=== PATIENT | female | born 1985 | race Caucasian/White ===

== ENCOUNTER → 2019-10-19 14:29 | Outpatient (CLI) | payer OTHER, SELFPAY ==
--- NOTE | 2019-10-19 14:40 | CT_ITS ---
PROCEDURE: CT BONY PELVIS CLINICAL INDICATION: FX OF SACRUM Injury with pain, possible fracture COMPARISON: ABDPELW CT ABD PELVIS W/ CONTRAST from 01/30/2017 XR COCCYX 2V from 10/05/2019 TECHNIQUE: Axial images obtained with sagittal and coronal reformats. All CT scans at the facility use one or more dose reduction, viz: automated exposure control, ma/kV adjustment per patient size (including targeted exams where dose is matched to indication, i.e. head), or iterative reconstruction technique. FINDINGS: There is a mildly displaced fracture involving the sacrococcygeal junction. The distal fracture fragment is displaced anteriorly by 8 mm with over riding of the bony fragments by approximately 10 mm. There is a small umbilical hernia containing fat and a knuckle of small bowel. No bowel obstruction. There is a small amount of fluid in the pelvis. IMPRESSION: Mildly displaced sacrococcygeal fracture Dictated by: Azam Mike MD 10/19/2019 21:00 Electronically signed by Azam Mike MD in [place] 10/19/2019 21:00
== END ==
PROVIDERS: PCP Internal Medicine Adolescent Medicine; Visit Provider Nurse Practitioner Family
DX: S32.10XA Unspecified fracture of sacrum, initial encounter for closed fracture (principal)
CPT/HCPCS: 72192

== ENCOUNTER → 2020-07-02 16:44 | Outpatient (CLI) | payer OTHER, SELFPAY | PROVIDERS: PCP Internal Medicine Adolescent Medicine; Visit Provider Nurse Practitioner Family | DX: Z03.818 Encounter for observation for suspected exposure to other biological agents ruled out (principal) | CPT/HCPCS: U0003 ==

== ENCOUNTER → 2020-07-04 12:53 | Outpatient (POV) | payer OTHER, SELFPAY | PROVIDERS: Visit Provider Dermatology | DX: Z00.00 Encounter for general adult medical examination without abnormal findings (principal) ==

== ENCOUNTER → 2022-11-11 12:56 | Outpatient (CLI) | payer OTHER, SELFPAY ==
[2022-11-11 13:18] LABS: Basophils # 0.1 K/mm3 (0-0.2); Eosinophils # 0.1 K/mm3 (0.0-0.4); Eosinophils % 0.8 % (0.1-12.0); Hematocrit 39.8 % (37.0-47.0); Hemoglobin 13.3 g/dL (12.2-16.2); Lymphocytes # 2.7 K/mm3 (0.7-4.5); Lymphocytes % 38.4 % (10-50); Mean Corpuscular HGB Conc 33.5 g/dL (31.8-35.4); Mean Corpuscular Hemoglobin 29.6 pg (27.0-31.2); Mean Corpuscular Volume 88.4 fl (81-99); Mean Platelet Volume 7.8 fl (7.4-10.4); Monocytes # 0.6 K/mm3 (0.1-1.0); Monocytes % 7.9 % (1.7-9.3); Neutrophils # 3.7 K/mm3 (1.8-7.8); Neutrophils % 51.8 % (37.0-80.0); Platelet Count 332 K/mm3 (142-424); Red Cell Distribution Width 12.8 % (11.5-17.5); White Blood Count 7.1 K/mm3 (4.8-10.8)
[2022-11-11 16:12] LABS: Alanine Aminotransferase 15 U/L (12-78); Albumin Level 4.4 g/dl (3.5-5.0); Albumin/Globulin Ratio 1.3 (1.1-1.8); Alkaline Phosphatase 83 U/L (38-126); Anion Gap 13.1 mEq/L (5-15); Aspartate Amino Transferase 23 U/L (14-36); Bilirubin,Total 0.4 mg/dl (0.2-1.3); Blood Urea Nitrogen 10 mg/dl (7-17); Calcium 9.8 mg/dl (8.4-10.2); Carbon Dioxide 23 mmol/L (22.0-30.0); Chloride 105 mmol/L (98-107); Chol/HDL Ratio 5.2 (1-3.5); Cholesterol 251 mg/dl (140-200); Estimated Glomerular Filt Rate 94 ml/min (>60); GFR (African American) 113 ML/MIN (>60); Globulin 3.5 g/dL (1.3-3.2); Glucose 87 mg/dl (74-100); HDL Cholesterol 48 mg/dl (40-60); Potassium 4.1 mmoL/L (3.5-5.1); Sodium 137 mmol/L (136-145); Total Protein,Serum 7.9 g/dl (6.3-8.2); Triglycerides 165 mg/dl (30-150); VLDL Cholesterol 33 mg/dL (0-40)
[2022-11-11 16:23] LABS: Direct LDL Cholesterol 147.71 mg/dL (100-129)
[2022-11-11 16:28] LABS: 25-OH Vitamin D, Total 13.4 ng/mL (30-100)
[2022-11-11 16:42] LABS: Thyroid Stimulating Hormone 1.53 uIU/mL (0.465-4.68)
== END ==
PROVIDERS: PCP Physician Assistant; Visit Provider Physician Assistant
DX: R63.5 Abnormal weight gain (principal); E55.9 Vitamin D deficiency, unspecified; E66.9 Obesity, unspecified; Z68.32 Body mass index [BMI] 32.0-32.9, adult
CPT/HCPCS: 36415; 80053; 80061; 82306; 84443; 85025

== ENCOUNTER 2025-10-10 21:17 | Outpatient (CLI) | payer BC, SELFPAY ==
[2025-10-11 01:09] LABS: C. difficile PCR (HMH) Negative (Negative)
== END 2025-10-10 23:59 | disposition home or self-care (01) ==
LOC: LAB 21:18
PROVIDERS: PCP Physician Assistant; Visit Provider Nurse Practitioner
DX: R19.7 Diarrhea, unspecified (principal)
CPT/HCPCS: 87493